=== PATIENT | male | born 1985 | race Hispanic/Latino ===

== ENCOUNTER 2018-12-07 06:28 | Emergency (ER) | payer OTHER, BC ==
[~2018-12-07] VITALS: Ht 175.3 cm; Wt 118.2 kg
[~2018-12-07 06:28] MED LIST: AUGMENTIN875TAB OR; CIPRO500 MG OR; CRESTOR10 MG OR; NAPROSYN500 MG PO; PROMETHAZINE25 MG OR; TRAZODONE100 MG PO; TRIAMINIC COLD & COU PO
[2018-12-07] MEDS ORDERED: LISINOP/HCTZ1 TAB PO (06:36)
[2018-12-07 08:00] VITALS: BP 128/68
== END 2018-12-07 08:00 | disposition home or self-care (01) | DRG 605 ==
LOC: ED 06:28
DX: S60.031A Contusion of right middle finger without damage to nail, initial encounter (principal); I10 Essential (primary) hypertension; W22.8XXA Striking against or struck by other objects, initial encounter; Y92.89 Other specified places as the place of occurrence of the external cause; Y99.0 Civilian activity done for income or pay

== ENCOUNTER 2019-09-02 | Emergency (ER) | payer OTHER, BC ==
[~2019-09-02] MED LIST changes: +LISINOP/HCTZ1 TAB PO
[2019-09-02 13:57] LABS: HEMATOCRIT 40.7 % (39.0-50.0); IMMATURE GRANULOCYTES 0.6 % (0.0-5.0); MEAN CELL VOLUME 87.3 fL CALC (80.0-100.0); MEAN CORPUSCULAR HGB 28.1 pG CALC (26.0-32.0); MEAN CORPUSCULAR HGB CONC 32.2 g/L CALC (32.0-36.0); NEUT# 18.39 thou/uL (1.82-7.42); RED BLOOD COUNT 4.66 mill/uL (4.70-6.10)
[2019-09-02 13:58] LABS: HEMOGLOBIN 13.1 g/dl (14.0-18.0)
[2019-09-02 14:18] LABS: ALBUMIN 4.2 g/dL (3.2-5.0); ALKALINE PHOSPHATASE 67 u/l (38-126); BUN 10 mg/dL (9-20); BUN/CREATININE RATIO 13 (12-20 (CALC)); CARBON DIOXIDE 24 mmol/l (22-30); CHLORIDE 104 mmol/l (95-108); CREATININE 0.8 mg/dL (0.7-1.3); GFR > 60 ML/MIN (>=60 (CALC)); GFR FOR AFR.AMER. > 60 ML/MIN (>=60 (CALC)); LIPASE 61 u/l (23-300); SGOT/AST 22 u/l (17-59); SODIUM 138 mmol/l (137-146); TOTAL PROTEIN 7.6 g/dL (6.3-8.2)
[2019-09-02 14:19] LABS: ANION GAP 14 (6-22 (CALC)); BILIRUBIN, TOTAL 0.6 mg/dL (0.0-1.4); POTASSIUM 3.6 mmol/l (3.5-5.1)
[2019-09-02] MEDS ORDERED: ONDANSETRON4 MG PO (14:43)
[2019-09-03] MEDS ORDERED: ONDANSETRON4 MG PO (11:19)
== END 2019-09-02 15:15 | disposition home or self-care (01) | DRG 90 ==
PROVIDERS: Family Medicine
DX: S06.0X1A Concussion with loss of consciousness of 30 minutes or less, initial encounter (principal); S00.03XA Contusion of scalp, initial encounter; I10 Essential (primary) hypertension; Y04.8XXA Assault by other bodily force, initial encounter; Y93.89 Activity, other specified; Y92.149 Unspecified place in prison as the place of occurrence of the external cause; Y99.0 Civilian activity done for income or pay

== ENCOUNTER 2019-09-03 | Emergency (ER) | payer OTHER, BC ==
[~2019-09-03] MED LIST changes: +ONDANSETRON4 MG PO
[2019-09-03 10:52] LABS: HEMATOCRIT 38.7 % (39.0-50.0); HEMOGLOBIN 12.6 g/dl (14.0-18.0); IMMATURE GRANULOCYTES 0.3 % (0.0-5.0); MEAN CELL VOLUME 86.4 fL CALC (80.0-100.0); MEAN CORPUSCULAR HGB 28.1 pG CALC (26.0-32.0); MEAN CORPUSCULAR HGB CONC 32.6 g/L CALC (32.0-36.0); NEUT# 4.74 thou/uL (1.82-7.42); RED BLOOD COUNT 4.48 mill/uL (4.70-6.10)
[2019-09-03 11:05] LABS: ALBUMIN 4.1 g/dL (3.2-5.0); ALKALINE PHOSPHATASE 60 u/l (38-126); ANION GAP 11 (6-22 (CALC)); BILIRUBIN, TOTAL 0.7 mg/dL (0.0-1.4); BUN 8 mg/dL (9-20); BUN/CREATININE RATIO 12 (12-20 (CALC)); CARBON DIOXIDE 26 mmol/l (22-30); CHLORIDE 102 mmol/l (95-108); CREATININE 0.6 mg/dL (0.7-1.3); GFR > 60 ML/MIN (>=60 (CALC)); GFR FOR AFR.AMER. > 60 ML/MIN (>=60 (CALC)); POTASSIUM 3.9 mmol/l (3.5-5.1); SGOT/AST 26 u/l (17-59); SODIUM 136 mmol/l (137-146); TOTAL PROTEIN 7.4 g/dL (6.3-8.2)
[2019-09-03] MEDS ORDERED: ONDANSETRON4 MG PO (11:19)
== END 2019-09-03 11:40 | disposition home or self-care (01) | DRG 950 ==
PROVIDERS: Emergency Medicine
DX: S09.90XD Unspecified injury of head, subsequent encounter (principal); I10 Essential (primary) hypertension; Y04.8XXD Assault by other bodily force, subsequent encounter